=== PATIENT | male | born 1990 ===

== ENCOUNTER 2018-11-26 18:25 | Emergency (ER) | payer OTHER ==
--- NOTE | 2018-11-26 18:57 | UC ---
Skin Complaint HPI - HPI Summary HPI Summary: has had 3 small bumps on the base of his penis ---he thinks they have been there for a few weeks---no pain drainage itch, monogamous relation ship for 2 years with a female - History of Current Complaint Chief Complaint: UCSkin Time Seen by Provider: 11/26/18 18:48 Stated Complaint: SOFT TISSUE Hx Obtained From: Patient Onset/Duration: Gradual Onset, Lasting Weeks - 3, Still Present Timing: Constant Pain Intensity: 0 Pain Scale Used: 0-10 Numeric Location: Discrete Aggravating Factor(s): Nothing Alleviating Factor(s): Nothing Associated Signs & Symptoms: Positive: Negative - Allergy/Home Medications Allergies/Adverse Reactions: Allergies Allergy/AdvReac Type Severity Reaction Status Date / Time No Known Allergies Allergy Verified 11/26/18 18:44 Home Medications: Home Medications NK [No Home Medications Reported] 11/26/18 [History Confirmed 11/26/18] PMH/Surg Hx/FS Hx/Imm Hx Previously Healthy: Yes - Surgical History Surgical History: None - Family History Known Family History: Positive: None - Social History Occupation: Employed Full-time Lives: With Family Alcohol Use: Weekly Substance Use Type: Cocaine Substance Use Comment - Amount & Last Used: once or twice a year Smoking Status (MU): Heavy Every Day Tobacco Smoker Review of Systems All Other Systems Reviewed And Are Negative: Yes Constitutional: Positive: Negative Skin: Positive: Other - 3 small flesh colored slightly raised papula Eyes: Positive: Negative ENT: Positive: Negative Respiratory: Positive: Negative Cardiovascular: Positive: Negative Gastrointestinal: Positive: Negative Genitourinary: Positive: Negative Motor: Positive: Negative Neurovascular: Positive: Negative Musculoskeletal: Positive: Negative Neurological: Positive: Negative Psychological: Positive: Negative Is Patient Immunocompromised?: No Physical Exam Triage Information Reviewed: Yes Appearance: Well-Appearing, No Pain Distress, Well-Nourished Vital Signs: Initial Vital Signs Temp 98.6 F 11/26/18 18:39 Pulse 87 11/26/18 18:39 Resp 18 11/26/18 18:39 BP 141/118 11/26/18 18:39 Pulse Ox 99 11/26/18 18:39 Vital Signs Reviewed: Yes Eye Exam: Normal Eyes: Positive: Conjunctiva Clear ENT Exam: Normal ENT: Positive: Normal ENT inspection, Hearing grossly normal. Negative: Trismus , Muffled voice, Hoarse voice Neck exam: Normal Neck: Positive: Supple, Nontender Respiratory Exam: Normal Respiratory: Positive: Chest non-tender, No respiratory distress, No accessory muscle use Cardiovascular Exam: Normal Cardiovascular: Positive: Brisk Capillary Refill Male Genital Exam: Positive: Normal Genitalia, No Hernia. Negative: Erythema, Urethral Discharge Musculoskeletal Exam: Normal Musculoskeletal: Positive: Strength Intact, ROM Intact Neurological Exam: Normal Neurological: Positive: Alert, Muscle Tone Normal Psychological Exam: Normal Skin: Positive: Other - 3 flesh color papula less than 2 mm diameter Course/Dx - Course Course Of Treatment: follow with dermatology for biopsy and definitive dx. do not squeeze of poke, - Diagnoses Provider Diagnosis: Papular eruption Discharge - Sign-Out/Discharge Documenting (check all that apply): Patient Departure All imaging exams completed and their final reports reviewed: No Studies - Discharge Plan Condition: Stable Disposition: HOME Patient Education Materials: Genital Herpes Simplex (ED), Genital Warts (ED), Molluscum Contagiosum (ED), Common Wart (ED) Referrals: Alexis Pina MD [Medical Doctor] - Michelle Funez MD [Medical Doctor] - Lakeisha Bartlett [Medical Doctor] - Additional Instructions: I do not believe the "3 bumps" are infectious or related to a sexually transmitted infection. For a definitive diagnosis I would suggest you follow with a family service aide so this can be biopsied and looked at under a microscope - Billing Disposition and Condition Condition: STABLE Disposition: Home
== END 2018-11-26 19:14 | disposition home or self-care (01) ==
LOC: UCEAST 18:25
DX: R23.8 Other skin changes (principal); F17.210 Nicotine dependence, cigarettes, uncomplicated
CPT/HCPCS: 99201; G0463